=== PATIENT | female | born 2000 | race African-American/Black ===

== ENCOUNTER 2024-12-05 07:59 | Emergency (ER) | payer OTHER ==
[~2024-12-05] VITALS: Ht 175.3 cm; Wt 99.8 kg
[2024-12-05] MEDS: IV NS 0.9% 1,000 ML BAG IV ONE (09:00)
[2024-12-05] MEDS: MORPHINE SULFATE INJ 2 MG/ML DISP.SYRIN IV ONE (09:00)
[2024-12-05] MEDS: ONDANSETRON HCL/PF 4 MG/2 ML VIAL IVP ONE (09:00)
[2024-12-05] MEDS ORDERED: ONDANSETRON HCL/PF 4 MG/2 ML VIAL ONE (09:06)
[2024-12-05] MEDS ORDERED: MORPHINE SULFATE INJ 4 MG/ML DISP.SYRIN ONE (09:07)
[2024-12-05 09:24] LABS: BASOPHILS % (AUTO) 0.5 % (0.0-2.0); EOSINOPHILS # (AUTO) 0.2 K/uL (0.0-0.7); EOSINOPHILS % (AUTO) 2.6 % (0.0-6.0); HEMATOCRIT 39 % (33-45); HEMOGLOBIN 12.9 g/dL (11.5-14.8); LYMPHOCYTES # (AUTO) 1.8 K/uL (0.8-4.8); LYMPHOCYTES % (AUTO) 19.2 % (20.0-44.0); MEAN CORPUSCULAR HEMOGLOBIN 28 PG (26.0-33.0); MEAN CORPUSCULAR HGB CONC 33 g/dl (31.0-36.0); MEAN CORPUSCULAR VOLUME 84 fL (82-100); MONOCYTES # (AUTO) 0.7 K/uL (0.1-1.30); MONOCYTES % (AUTO) 7.7 % (2.0-12.0); NEUTROPHILS # (AUTO) 6.7 K/uL (1.8-8.9); PLATELET COUNT (AUTO) 314 K/uL (150-450); RED BLOOD CELL COUNT(AUTO) 4.65 MIL/uL (4.0-5.2); RED CELL DISTRIBUTION WIDTH 14.6 % (11.5-15.0); WHITE BLOOD COUNT (AUTO) 9.6 K/uL (4.3-11.0)
[2024-12-05 09:42] LABS: BILIRUBIN,TOTAL 0.6 mg/dL (0.2-1.0); CALCIUM, SERUM 9.3 mg/dL (8.5-10.1); POTASSIUM 4.2 mmol/L (3.5-5.1)
[2024-12-05 09:43] LABS: ALBUMIN 3.9 g/dL (3.4-5.0); BILIRUBIN,DIRECT 0.1 mg/dL (0.0-0.2)
[2024-12-05] MEDS ORDERED: FAMO20TA8 PO (10:49)
[2024-12-05] MEDS ORDERED: DICY10CA37 PO (10:49)
[2024-12-05] MEDS ORDERED: ONDA4TAB11 PO (10:49)
[2024-12-05 11:23] LABS: APPEARANCE,URINE CLEAR (CLEAR); BILIRUBIN,URINE NEGATIVE (NEGATIVE); BLOOD, URINE 3+ Ery/uL (NEGATIVE); COLOR,URINE YELLOW (YELLOW); KETONES,URINE NEGATIVE (NEGATIVE); LEUKOCYTE ESTERASE ,URINE TRACE (NEGATIVE); NITRITE, URINE NEGATIVE (NEGATIVE); PROTEIN,URINE NEGATIVE (NEGATIVE); UGLUCOSE NEGATIVE (NEGATIVE); UROBILINOGEN,URINE 0.2 EU/dL (0.2)
[2024-12-05 11:24] LABS: PREGNANCY TEST URINE QUAL NEGATIVE (NEGATIVE)
[2024-12-05 11:30] LABS: BACTERIA,URINE Few /HPF (None Seen); MUCUS,URINE Few /LPF (None Seen); RBC,URINE 21-50 /HPF (0-2)
[2024-12-05 11:31] LABS: ADD URINE CULTURE YES
[2024-12-05] MEDS ORDERED: NITR100C6 PO (11:58)
[2024-12-05 12:19] VITALS: BP 132/80; TEMP 98.6; O2SAT 99
== END 2024-12-05 12:19 | disposition home or self-care (01) ==
LOC: ER 08:09
DX: R10.13 Epigastric pain (principal); R11.2 Nausea with vomiting, unspecified; R19.7 Diarrhea, unspecified; R10.2 Pelvic and perineal pain; J45.909 Unspecified asthma, uncomplicated; E86.0 Dehydration
CPT/HCPCS: 99284; 96374; 96361; 96375; 85025; 80048; 87086; 83690; 80076; 84703; 81001; 36415; 84702; J2270; J2405; J7030; A4223

== ENCOUNTER 2025-09-10 11:58 | Emergency (ER) | payer OTHER ==
[~2025-09-10] VITALS: Ht 175.3 cm; Wt 104.3 kg
[~2025-09-10 11:58] MED LIST: DICY10CA37 PO; FAMO20TA8 PO; NITR100C6 PO; ONDA4TAB11 PO
[2025-09-10 12:04] VITALS: BP 127/72; TEMP 98.4; O2SAT 95
[2025-09-10] MEDS ORDERED: PRED20TA PO (12:19)
== END 2025-09-10 12:49 | disposition home or self-care (01) ==
LOC: ER 12:00
DX: L30.9 Dermatitis, unspecified (principal); Z79.52 Long term (current) use of systemic steroids